=== PATIENT | male | born 1970 | race Caucasian/White ===

== ENCOUNTER 2022-05-02 21:37 | Inpatient (IN) | payer OTHER ==
[2022-05-03 04:52] VITALS: BMI 23.7
[2022-05-03] MEDS ORDERED: MAGNESIUM CITRATE 300 ML BOTTLE PO PRN (05:51)
[2022-05-03] MEDS ORDERED: cloNIDine HCL 0.1 MG TABLET PO PRN (05:51)
[2022-05-03] MEDS ORDERED: ACETAMINOPHEN 325 MG TABLET (FP) PO PRN ×2 (05:51)
[2022-05-03] MEDS ORDERED: IBUPROFEN 600 MG TABLET (FP) PO PRN (05:51)
[2022-05-03] MEDS ORDERED: MAGNESIUM HYDROX 2400MG/30ML ORAL SUSPENSION 30 ML CUP PO PRN (05:51)
[2022-05-03] MEDS ORDERED: IBUPROFEN 400 MG TABLET (FP) PO PRN (05:51)
[2022-05-03] MEDS ORDERED: ONDANSETRON *ODT* 4 MG TABLET SL PRN (05:51)
[2022-05-03] MEDS ORDERED: BENZOCAINE/MENTHOL (CHLORASEPTIC ) LOZENGE MM PRN (05:51)
[2022-05-03] MEDS ORDERED: DICYCLOMINE HCL 10 MG CAPSULE PO PRN (05:51)
[2022-05-03] MEDS ORDERED: BISMUTH SUBSALICYLATE 524 MG/30 ML PO PRN (05:51)
[2022-05-03] MEDS ORDERED: LOPERAMIDE HCL 2 MG CAPSULE PO PRN (05:51)
[2022-05-03] MEDS ORDERED: MAG HYDROX/AL HYDROX/SIMETH 30 ML UNIT-DOSE CUP PO PRN (05:51)
[2022-05-03] MEDS ORDERED: methaDONE HCL 10 MG TABLET (FOR DETOX USE ONLY) PO ONE (05:51)
[2022-05-03] MEDS ORDERED: METHOCARBAMOL 500 MG TABLET PO PRN (05:51)
[2022-05-03] MEDS ORDERED: methaDONE HCL 10 MG TABLET (FOR DETOX USE ONLY) ONE (08:44)
[2022-05-03] MEDS: NICOTINE 14 MG/24 HOURS TOPICAL PATCH TD SCH (12:18)
[2022-05-03] MEDS: PRENATAL VITAMINS W/ FOLIC ACID TABLET (FP) PO SCH (12:18)
[2022-05-03 13:55] LABS: HEMATOCRIT 46.1 % (35.4-49); HEMOGLOBIN 15.5 GM/dL (11.7-16.9); MCH 31.2 pg (25.7-33.7); MCHC 33.6 g/dl (32.0-35.9); MEAN CELL VOLUME 92.9 fl (80-96); MEAN PLT VOLUME 9.1 fl (7.5-11.1); PLATELET COUNT 270 10^3/uL (134-434); RBC 4.96 M/mm3 (4.00-5.60); RDW 14.6 % (11.9-15.9); WHITE BLOOD COUNT 11.3 K/mm3 (4.0-10.0)
[2022-05-03 13:56] LABS: BLOOD UREA NITROGEN 8.2 mg/dL (7-18)
[2022-05-03 13:57] LABS: ALBUMIN 3.5 g/dl (3.4-5.0)
[2022-05-03 14:00] LABS: BILIRUBIN,TOTAL 0.8 mg/dL (0.2-1)
[2022-05-03 14:02] LABS: CREATININE 0.8 mg/dL (0.55-1.3)
[2022-05-03 14:05] LABS: TOT PROT 6.7 g/dl (6.4-8.2)
[2022-05-03] MEDS: MELATONIN 5 MG TABLETS PO SCH (22:09)
[2022-05-03] MEDS: THIAMINE HCL 100 MG TABLET (FP) PO SCH (22:10)
[2022-05-04] MEDS: PRENATAL VITAMINS W/ FOLIC ACID TABLET (FP) PO SCH (10:30)
[2022-05-04] MEDS: NICOTINE 14 MG/24 HOURS TOPICAL PATCH TD SCH (10:32)
[2022-05-04] MEDS: MELATONIN 5 MG TABLETS PO SCH (23:15)
[2022-05-04] MEDS: THIAMINE HCL 100 MG TABLET (FP) PO SCH (23:15)
[2022-05-05] MEDS ORDERED: methaDONE HCL 10 MG TABLET (FOR DETOX USE ONLY) PO ONE (10:00)
[2022-05-05] MEDS: PRENATAL VITAMINS W/ FOLIC ACID TABLET (FP) PO SCH (10:41)
[2022-05-05] MEDS: NICOTINE 14 MG/24 HOURS TOPICAL PATCH TD SCH (10:42)
[2022-05-05] MEDS: MELATONIN 5 MG TABLETS PO SCH (22:18)
[2022-05-05] MEDS: THIAMINE HCL 100 MG TABLET (FP) PO SCH (22:18)
[2022-05-06] MEDS: PRENATAL VITAMINS W/ FOLIC ACID TABLET (FP) PO SCH (10:33)
[2022-05-06] MEDS: NICOTINE 14 MG/24 HOURS TOPICAL PATCH TD SCH (10:33)
[2022-05-06] MEDS: MELATONIN 5 MG TABLETS PO SCH (23:08)
[2022-05-06] MEDS: THIAMINE HCL 100 MG TABLET (FP) PO SCH (23:09)
[2022-05-07 06:41] VITALS: RESP 18
[2022-05-07 09:35] VITALS: BP 122/71; PULSE 64; TEMP 97.5
[2022-05-07] MEDS ORDERED: methaDONE HCL 10 MG TABLET (FOR DETOX USE ONLY) PO ONE (10:00)
[2022-05-07] MEDS: PRENATAL VITAMINS W/ FOLIC ACID TABLET (FP) PO SCH (10:38)
[2022-05-07] MEDS: NICOTINE 14 MG/24 HOURS TOPICAL PATCH TD SCH (10:38)
== END 2022-05-07 11:06 | disposition home or self-care (01) | DRG 773 ==
LOC: YASAS 21:37 → Y3N 05-03 11:39 → Y6N 05-05 18:21
PROVIDERS: ADMIT Allergy & Immunology; ATTEND Surgery
PROC: HZ2ZZZZ Detoxification Services for Substance Abuse Treatment (ICD-10-PCS; principal; 2022-05-03)
DX: F11.23 Opioid dependence with withdrawal (principal); F14.20 Cocaine dependence, uncomplicated; F17.210 Nicotine dependence, cigarettes, uncomplicated
CPT/HCPCS: 36415; 80053; 85027; 86780; 87811; C9803-CS; U0003; U0005